=== PATIENT | male | born 1955 | race Caucasian/White ===

== ENCOUNTER → 2022-04-23 14:35 | Outpatient (CLI) | payer MEDICARE, OTHER, SELFPAY | PROVIDERS: PCP Internal Medicine; Referring Provider Family Medicine; Visit Provider Family Medicine | DX: L08.89 Other specified local infections of the skin and subcutaneous tissue (principal) | CPT/HCPCS: 11042; 87070; 87205; 99204; 99213 ==

== ENCOUNTER → 2022-05-01 11:27 | Outpatient (CLI) | payer MEDICARE, OTHER, SELFPAY | PROVIDERS: PCP Internal Medicine; Referring Provider Family Medicine; Visit Provider Family Medicine | DX: L08.89 Other specified local infections of the skin and subcutaneous tissue (principal); E11.628 Type 2 diabetes mellitus with other skin complications; E11.51 Type 2 diabetes mellitus with diabetic peripheral angiopathy without gangrene | CPT/HCPCS: 87070; 87075; 87205; 99213; 99214 ==

== ENCOUNTER → 2022-05-09 10:15 | Outpatient (CLI) | payer MEDICARE, OTHER, SELFPAY | PROVIDERS: PCP Internal Medicine; Referring Provider Internal Medicine; Visit Provider Family Medicine | DX: L08.89 Other specified local infections of the skin and subcutaneous tissue (principal); E11.628 Type 2 diabetes mellitus with other skin complications; E11.51 Type 2 diabetes mellitus with diabetic peripheral angiopathy without gangrene | CPT/HCPCS: 11042 ==

== ENCOUNTER → 2022-05-16 10:56 | Outpatient (CLI) | payer MEDICARE, OTHER, SELFPAY | PROVIDERS: PCP Internal Medicine; Referring Provider Family Medicine; Visit Provider Family Medicine | DX: S31.105D Unspecified open wound of abdominal wall, periumbilic region without penetration into peritoneal cavity, subsequent encounter (principal) | CPT/HCPCS: 99212 ==

== ENCOUNTER → 2022-05-21 13:55 | Outpatient (CLI) | payer MEDICARE, OTHER, SELFPAY ==
--- NOTE | 2022-05-21 | DI.RAD.S_ITS ---
PROCEDURE: XR FOOT RT MIN 3V INDICATIONS: puncture wound rt 2nd plantar Mth FB TECHNIQUE: 3 views of the foot were acquired. COMPARISON: None. FINDINGS: Bones: No fractures or dislocations. No suspicious bony lesions. Soft tissues: No tibiotalar joint effusion. Achilles tendon appears normal. IMPRESSION: No acute osseous abnormalities. No radiopaque foreign body. Dictated by: Marilee Duran M.D. on 05/21/2022 at 17:19 Approved by: Marilee Duran M.D. on 05/21/2022 at 17:20
== END ==
PROVIDERS: PCP Internal Medicine; Referring Provider Internal Medicine; Visit Provider Family Medicine
DX: E11.621 Type 2 diabetes mellitus with foot ulcer (principal); L97.512 Non-pressure chronic ulcer of other part of right foot with fat layer exposed; L08.9 Local infection of the skin and subcutaneous tissue, unspecified; E11.42 Type 2 diabetes mellitus with diabetic polyneuropathy
CPT/HCPCS: 11042; 73630; 87070; 87075; 87077; 87147; 87185; 87186; 87205; 99212; 99214

== ENCOUNTER → 2022-05-28 10:58 | Outpatient (CLI) | payer MEDICARE, OTHER, SELFPAY | PROVIDERS: PCP Internal Medicine; Referring Provider Internal Medicine; Visit Provider Family Medicine | DX: E11.621 Type 2 diabetes mellitus with foot ulcer (principal); S91.134S Puncture wound without foreign body of right lesser toe(s) without damage to nail, sequela; L97.512 Non-pressure chronic ulcer of other part of right foot with fat layer exposed; E11.40 Type 2 diabetes mellitus with diabetic neuropathy, unspecified; B95.61 Methicillin susceptible Staphylococcus aureus infection as the cause of diseases classified elsewhere; B95.7 Other staphylococcus as the cause of diseases classified elsewhere; Z79.01 Long term (current) use of anticoagulants | CPT/HCPCS: 11042; 99213 ==

== ENCOUNTER → 2022-06-04 10:13 | Outpatient (CLI) | payer MEDICARE, OTHER, SELFPAY | PROVIDERS: PCP Internal Medicine; Referring Provider Internal Medicine; Visit Provider Family Medicine | DX: E11.621 Type 2 diabetes mellitus with foot ulcer (principal); L97.512 Non-pressure chronic ulcer of other part of right foot with fat layer exposed; E11.42 Type 2 diabetes mellitus with diabetic polyneuropathy; L08.9 Local infection of the skin and subcutaneous tissue, unspecified; Z79.01 Long term (current) use of anticoagulants | CPT/HCPCS: 11042; 87070; 87075; 87077; 87147; 87186; 87205; 99213 ==

== ENCOUNTER → 2022-06-12 10:55 | Outpatient (CLI) | payer MEDICARE, OTHER, SELFPAY | PROVIDERS: PCP Internal Medicine; Referring Provider Internal Medicine; Visit Provider Family Medicine | DX: E11.621 Type 2 diabetes mellitus with foot ulcer (principal); L97.512 Non-pressure chronic ulcer of other part of right foot with fat layer exposed; E11.51 Type 2 diabetes mellitus with diabetic peripheral angiopathy without gangrene; E11.42 Type 2 diabetes mellitus with diabetic polyneuropathy | CPT/HCPCS: 97597 ==

== ENCOUNTER → 2022-06-26 11:29 | Outpatient (CLI) | payer MEDICARE, OTHER, SELFPAY | PROVIDERS: PCP Internal Medicine; Referring Provider Internal Medicine; Visit Provider Surgery | DX: L84 Corns and callosities (principal); Z86.31 Personal history of diabetic foot ulcer; E11.40 Type 2 diabetes mellitus with diabetic neuropathy, unspecified; E11.51 Type 2 diabetes mellitus with diabetic peripheral angiopathy without gangrene | CPT/HCPCS: 11055; 99212 ==

== ENCOUNTER 2022-07-13 03:32 | Emergency (ER) | payer MEDICARE, OTHER, SELFPAY ==
[2022-07-13] VITALS (12 sets, daily range): BP systolic 111–152; BP diastolic 60–72; PULSE 80–100; RESP 16–18; TEMP 38.8; O2SAT 93–98; BMI 28.3
--- NOTE | 2022-07-13 03:43 | DI.RAD.S_ITS ---
PROCEDURE: XR CHEST 1V INDICATIONS: fever TECHNIQUE: One view of the chest was acquired. COMPARISON: [facility], CT, CT ABDOMEN PELVIS W CON, 07/13/2022, 5:24. FINDINGS: Surgical changes and devices: Sternotomy wires are seen. Lungs and pleura: Left-sided pleural thickening seen laterally, which is attributed to partially loculated pleural effusion. Patchy infiltrates can be seen at the left lung base. No pneumothorax is seen. Mediastinum: Mediastinal contours appear normal. Heart size is normal. Bones and chest wall: Age-appropriate bony degenerative changes are seen. No suspicious bony lesions. Overlying soft tissues appear unremarkable. IMPRESSION: Left-sided pleural effusion, which is seen laterally and is believed to be partially loculated. This can be seen in patients for several months following sternotomy. Please correlate with patient history. Postoperative and degenerative changes are seen. (Note: The original preliminary report does not mention the left-sided pleural effusion, yet is described on the follow-up CT.) Dictated by: Jono Naqvi M.D. on 07/13/2022 at 7:48 Approved by: Jono Naqvi M.D. on 07/13/2022 at 7:50
[2022-07-13 03:58] LABS: Alanine Aminotransferase 39 IU/L (<50); Albumin 3.6 g/dL (3.5-5.0); Albumin Globulin Ratio 1.2 (1.0-2.8); Alkaline Phosphatase 107 U/L (38-126); Aspartate Aminotransferase 58 IU/L (17-59); BUN Creatinine Ratio 12.5 (6-22); Bilirubin Total 0.6 mg/dL (0.2-1.3); Blood Urea Nitrogen 12 mg/dL (9-20); Calcium 7.3 mg/dL (8.4-10.2); Carbon Dioxide 26 mmol/L (22-32); Chloride 92 mmol/L (98-107); Creatine Kinase 90 U/L (55-170); Estimated Glomerular Filt Rate > 60 mL/min (>60); Globulin 3.1 g/dL (1.7-4.1); Glucose 218 mg/dL (80-110); HEMOLYSIS 23 (0-50); Hematocrit 31.1 % (41-53); Hemoglobin 10.5 g/dL (13.5-17.5); Mean Corpuscular HGB Conc 33.7 % (30-36); Mean Corpuscular Hemoglobin 27.3 PG (26-34); Mean Corpuscular Volume 80.8 fL (80-100); Platelet Count 195 X10^3/uL (150-400); Potassium 3.8 mmol/L (3.4-5.1); Red Blood Cell Count 3.85 X10^6/uL (4.5-5.9); Red Cell Distribution Width 16.6 % (11.6-14.8); Sodium 127 mmol/L (137-145); Total Protein 6.7 g/dL (6.3-8.2); White Blood Cell Count 3.2 X10^3/uL (4.5-11.0)
[2022-07-13 03:59] LABS: Add Manual Diff / Slide Review YES
[2022-07-13 04:02] LABS: Lactate (Lactic Acid) 1.6 mmol/L (0.7-2.1)
[2022-07-13 04:10] LABS: Troponin I 0.014 ng/mL (0.01-0.034)
[2022-07-13 04:15] LABS: Procalcitonin 0.47 ng/mL (<0.5)
[2022-07-13 04:33] LABS: Influenza A - CEPHEID Flu A NEGATIVE (NEGATIVE); Influenza B - CEPHEID Flu B NEGATIVE (NEGATIVE); Respiratory Syncytial Virus Negative (Negative)
[2022-07-13] MEDS: ACETAMINOPHEN 325 MG TABLET 975 MG PO (04:33)
[2022-07-13 04:39] LABS: COVID-19 CEPHEID 4-PLEX PCR Negative (Negative)
--- NOTE | 2022-07-13 04:54 | ED.SEPSIS ---
HPI - Sepsis General Chief Complaint: Fever Mode of arrival: EMS Source: patient Evaluation Sepsis Screen: No Definite Risk Sepsis Infection Criteria Present: None Narrative: Patient is a 67-year-old male history of insulin-dependent diabetes, hypertension hyperlipidemia, mesenteric ischemia presenting today with confusion and fever. Daughter states that she has and his noted that he is was having some hallucinations talking about things that definitely did not happen. He noted to have a fever 101.8. He has had chronic wounds on his right foot but they actually have healed he was seeing wound care. His but they have now healed. He has had chronic abdominal pain he had a stent placed is for his legs, he is on anticoagulation. He denies any neck pain no severe headache chest pain palpitations no cough no significant nausea or vomiting. No sore throat. Denies any painful or frequent urination. Review of Systems Review of Systems Narrative: GENERAL:+ fever,+ confusion HEENT: Denies sinus pain, ear pain, sore throat, difficulty swallowing, neck pain RESPIRATORY: Denies dyspnea, cough, wheezing, hemoptysis, sputum. CARDIOVASCULAR: Denies chest pain, palpitations, orthopnea, edema GASTROINTESTINAL: Denies nausea, vomiting, abdominal pain, diarrhea, constipation, melena. : Denies dysuria, frequency, incontinence, hematuria, urinary retention, flank pain. MUSCULOSKELETAL: Denies weakness, joint pain, or bony pain SKIN: No rash, no erythema, no pruritus NEUROLOGIC: Denies weakness, dizziness, headache, numbness, change in speech, confusion PSYCHIATRIC: No concerning psychosocial issues. 12 point review of systems is negative except for those stated above and HPI Exam Initial Vital Signs Initial Vital Signs: Vital Signs Temperature 101.8 F H 07/13/22 03:40 Pulse Rate 100 H 07/13/22 03:40 Respiratory Rate 18 07/13/22 03:40 Blood Pressure 134/62 07/13/22 03:40 Pulse Oximetry 96 07/13/22 03:40 Oxygen Delivery Method 07/13/22 03:40 GENERAL: Awake alert 67-year-old male HEENT: Head atraumatic,EOMI, pupils reactive, face symmetric, moist mucous membranes CARDIOVASCULAR: Regular rate and rhythm without murmurs, rubs or gallops. RESPIRATORY: Breath sounds equal bilaterally, no wheezes rales or rhonchi. ABDOMEN: Soft, tender right upper quadrant positive Higuera sign his mild epigastric tenderness EXTREMITIES: Normal range of motion, no clubbing or edema. Neurovascularly intact NEUROLOGICAL: Alert and oriented x4.Normal gait and speech. Landscape Manager strength equal bilaterally moving all extremities SKIN: Warm, dry, no laceration, no petechiae, no rashes or lesions. A sore on right foot are completely healed there is no erythema or drainage Course Orders Ordered: Discontinued Medications Acetaminophen (Acetaminophen 325 Mg Tablet) 975 mg PO NOW ONE Stop: 07/13/22 03:46 Last Admin: 07/13/22 04:33 Dose: 975 mg Documented By: ANTONIO Sodium Chloride (Normal Saline 0.9%) 1,000 mls @ 200 mls/hr IV CONT PETE Last Infusion: 07/13/22 08:06 Dose: 200 mls/hr Documented By: Admin: 07/13/22 06:43 Dose: 200 mls/hr Documented By: BRENT Piperacillin Sod/Tazobactam (Sod 4.5 gm/ Sodium Chloride) 100 mls @ 200 mls/hr IV NOW ONE Stop: 07/13/22 06:41 Last Infusion: 07/13/22 08:07 Dose: 0 mls/hr Documented By: Admin: 07/13/22 06:45 Dose: 200 mls/hr Documented By: BRENT Morphine Sulfate (Morphine 2 Mg/Ml Inj) 2 mg IV NOW ONE Stop: 07/13/22 06:34 Vital Signs Vital signs: Vital Signs - 8 hr 07/13/22 03:40 07/13/22 04:33 07/13/22 03:50 Temperature 101.8 F H 101.8 F H Pulse Rate 100 H 98 H Respiratory Rate 18 Blood Pressure 134/62 Pulse Oximetry 96 98 Oxygen Delivery Method Room Air 07/13/22 04:00 07/13/22 04:00 07/13/22 04:30 Temperature Pulse Rate 93 H Respiratory Rate Blood Pressure 132/72 137/60 Pulse Oximetry 96 Oxygen Delivery Method 07/13/22 04:30 07/13/22 05:00 07/13/22 05:00 Temperature Pulse Rate 93 H 97 H Respiratory Rate Blood Pressure 111/62 Pulse Oximetry 95 93 Oxygen Delivery Method 07/13/22 04:30 07/13/22 05:35 07/13/22 04:00 Temperature Pulse Rate 93 H 87 93 H Respiratory Rate 18 16 18 Blood Pressure 137/60 132/72 Pulse Oximetry 95 95 96 Oxygen Delivery Method Sepsis Evaluation (ED) Triage Screening Sepsis Screen: No Definite Risk Level 1 - Infection Sepsis Infection Criteria Present: None Response It is my opinion that his patient have a likely infectious etiology for meeting sepsis criteria: Does Not Fluid calculation based on 30 mL/kg within 1hr of criteria: IBW used due to BMI>30 Antibiotics initiated within 1 hr of Sepis dx: No Tissue Perfusion Reassessed within 6 hrs of infusion start time: No MDM - Sepsis Lab Data Result diagrams: 07/13/22 03:38 07/13/22 03:38 Labs: Lab Results 07/13/22 07/13/22 07/13/22 Range/Units 03:38 03:38 03:38 WBC 3.2 L (4.5-11.0) X10^3/uL RBC 3.85 L (4.5-5.9) X10^6/uL Hgb 10.5 L (13.5-17.5) g/dL Hct 31.1 L (41-53) % MCV 80.8 (80-100) fL MCH 27.3 (26-34) PG MCHC 33.7 (30-36) % RDW 16.6 H (11.6-14.8) % Plt Count 195 (150-400) X10^3/uL Neut % (Auto) Not Reportable Lymph % (Auto) Not Reportable Rains % (Auto) Not Reportable Eos % (Auto) Not Reportable Baso % (Auto) Not Reportable Lymph # (Auto) Not Reportable Rains # (Auto) Not Reportable Baso # (Auto) Not Reportable Total Counted 100 Seg Neutrophils % 76.0 H (38-70) % Band Neutrophils % 9.0 H (3-7) % Lymphocytes % (Manual) 9.0 L (25-45) % Monocytes % (Manual) 5.0 (2-11) % Basophils % (Manual) 1.0 (0-1) % Neutrophils # (Manual) 2720 L (2900-2206) /uL RBC Morphology See below Anisocytosis 1+ H Sodium 127 L (137-145) mmol/L Potassium 3.8 (3.4-5.1) mmol/L Chloride 92 L (98-107) mmol/L Carbon Dioxide 26 (22-32) mmol/L BUN 12 (9-20) mg/dL Creatinine 0.96 (0.66-1.25) mg/dL Estimated GFR > 60 (>60) mL/min BUN/Creatinine Ratio 12.5 (6-22) Glucose 218 H (80-110) mg/dL Lactate 1.6 (0.7-2.1) mmol/L Calcium 7.3 L (8.4-10.2) mg/dL Total Bilirubin 0.6 (0.2-1.3) mg/dL AST 58 (17-59) IU/L ALT 39 (<50) IU/L Alkaline Phosphatase 107 (38-126) U/L Total Creatine Kinase 90 (55-170) U/L CK-MB (CK-2) TNP CK-MB (CK-2) Rel Index TNP Troponin I 0.014 (0.01-0.034) ng/mL Total Protein 6.7 (6.3-8.2) g/dL Albumin 3.6 (3.5-5.0) g/dL Globulin 3.1 (1.7-4.1) g/dL Albumin/Globulin Ratio 1.2 (1.0-2.8) Procalcitonin 0.47 (<0.5) ng/mL Urine Color Urine Appearance Urine pH (4.5-8.0) Ur Specific [place] (1.000-1.035) Urine Protein (Negative) Urine Glucose (UA) (Negative) g/dL Urine Ketones (NEGATIVE) Urine Occult Blood (Negative) Urine Nitrate (Negative) Urine Bilirubin (NEGATIVE) Urine Urobilinogen (0.2) E.U./dL Ur Leukocyte Esterase (NEGATIVE) Urine RBC (0-5/HPF) Urine WBC (0-5/HPF) Urine Bacteria (None) Urine Mucus (Negative) Micro UA Comment Chlamy pneumoniae PCR (Not Detect) Adenovirus (PCR) (Not Detect) B. pertussis DNA (PCR) (Not Detecte) B.parapertussis DNA PCR (Not Detecte) Coronavirus OC43 (PCR) (Not Detect) Coronavirus HKU1 (PCR) (Not Detect) Coronavirus 229E (PCR) (Not Detect) SARS-CoV-2 (PCR) (Negative) Coronavirus NL63 (PCR) (Not Detect) Human Metapneumovir PCR (Not Detect) Influenza A (RT-PCR) (NEGATIVE) Influenza Type A (PCR) (Not Detect) Influenza B (RT-PCR) (NEGATIVE) Influenza Type B (PCR) (Not Detect) M. pneumoniae (PCR) (Not Detect) Parainfluenza 1 (PCR) (Not Detect) Parainfluenza 2 (PCR) (Not Detect) Parainfluenza 3 (PCR) (Not Detect) Parainfluenza 4 (PCR) (Not Detect) RSV (PCR) (Negative) Entero/Rhino (PCR) (Not Detect) 07/13/22 07/13/22 07/13/22 Range/Units 03:38 03:38 05:07 WBC (4.5-11.0) X10^3/uL RBC (4.5-5.9) X10^6/uL Hgb (13.5-17.5) g/dL Hct (41-53) % MCV (80-100) fL MCH (26-34) PG MCHC (30-36) % RDW (11.6-14.8) % Plt Count (150-400) X10^3/uL Neut % (Auto) Lymph % (Auto) Rains % (Auto) Eos % (Auto) Baso % (Auto) Lymph # (Auto) Rains # (Auto) Baso # (Auto) Total Counted Seg Neutrophils % (38-70) % Band Neutrophils % (3-7) % Lymphocytes % (Manual) (25-45) % Monocytes % (Manual) (2-11) % Basophils % (Manual) (0-1) % Neutrophils # (Manual) (5525-3484) /uL RBC Morphology Anisocytosis Sodium (137-145) mmol/L Potassium (3.4-5.1) mmol/L Chloride (98-107) mmol/L Carbon Dioxide (22-32) mmol/L BUN (9-20) mg/dL Creatinine (0.66-1.25) mg/dL Estimated GFR (>60) mL/min BUN/Creatinine Ratio (6-22) Glucose (80-110) mg/dL Lactate (0.7-2.1) mmol/L Calcium (8.4-10.2) mg/dL Total Bilirubin (0.2-1.3) mg/dL AST (17-59) IU/L ALT (<50) IU/L Alkaline Phosphatase (38-126) U/L Total Creatine Kinase (55-170) U/L CK-MB (CK-2) CK-MB (CK-2) Rel Index Troponin I (0.01-0.034) ng/mL Total Protein (6.3-8.2) g/dL Albumin (3.5-5.0) g/dL Globulin (1.7-4.1) g/dL Albumin/Globulin Ratio (1.0-2.8) Procalcitonin (<0.5) ng/mL Urine Color Yellow Urine Appearance Clear Urine pH 5.0 (4.5-8.0) Ur Specific [place] 1.010 (1.000-1.035) Urine Protein Trace H (Negative) Urine Glucose (UA) 1+ H (Negative) g/dL Urine Ketones Negative (NEGATIVE) Urine Occult Blood 3+ H (Negative) Urine Nitrate Negative (Negative) Urine Bilirubin Negative (NEGATIVE) Urine Urobilinogen 0.2 (0.2) E.U./dL Ur Leukocyte Esterase Negative (NEGATIVE) Urine RBC 1-5/hpf (0-5/HPF) Urine WBC 0-1/hpf (0-5/HPF) Urine Bacteria None seen (None) Urine Mucus 1+ H (Negative) Micro UA Comment * Chlamy pneumoniae PCR Not detected (Not Detect) Adenovirus (PCR) Not detected (Not Detect) B. pertussis DNA (PCR) Not detected (Not Detecte) B.parapertussis DNA PCR Not detected (Not Detecte) Coronavirus OC43 (PCR) Not detected (Not Detect) Coronavirus HKU1 (PCR) Not detected (Not Detect) Coronavirus 229E (PCR) Not detected (Not Detect) SARS-CoV-2 (PCR) Negative Not detected (Negative) Coronavirus NL63 (PCR) Not detected (Not Detect) Human Metapneumovir PCR Not detected (Not Detect) Influenza A (RT-PCR) Flu a negative (NEGATIVE) Influenza Type A (PCR) Not detected (Not Detect) Influenza B (RT-PCR) Flu b negative (NEGATIVE) Influenza Type B (PCR) Not detected (Not Detect) M. pneumoniae (PCR) Not detected (Not Detect) Parainfluenza 1 (PCR) Not detected (Not Detect) Parainfluenza 2 (PCR) Not detected (Not Detect) Parainfluenza 3 (PCR) Not detected (Not Detect) Parainfluenza 4 (PCR) Not detected (Not Detect) RSV (PCR) Negative Detected H (Negative) Entero/Rhino (PCR) Not detected (Not Detect) Urine Dip Bedside Urine Glucose 100 mg/dl Bedside Urine Bilirubin - Negative Bedside Urine Ketone - Negative Urine Specific [place] 1.015 Bedside Urine Occult Blood +++ Bedside Urine pH 6 Bedside Urine Protein +/- 15 Bedside Urine Urobilinogen - Negative Bedside Urine Nitrite - Negative Bedside Urine Leukocytes - Negative Esterase Imaging Data Chest x-ray: Radiologist's Impression: Preliminary report no acute cardiopulmonary abnormality is identified CT scan - abdomen/pelvis: Radiologist's Impression: Preliminary report questionable gallbladder wall thickening if there is clinical concern for acute cholecystitis recommend right upper quadrant ultrasound. No evidence of Colace diverticulitis bowel obstruction obstructive uropathy or acute appendicitis. Small bilateral pleural effusions left greater than right. ECG Data Interpretation: Normal sinus rhythm rate 93 [place] interval 154 QRS [address] changes no T-wave inversions Q-waves noted in lead 3 only no priors incomplete right bundle branch block left MDM Narrative Medical decision making narrative: Patient has a fever no obvious source he does not have pneumonia is 4 pack viral panel is negative. He is having some right upper quadrant pain but normal bilirubin and liver enzymes normal lipase. CT does show possible thickened gallbladder. Ultrasound was ordered. And is negative. Bilirubin liver enzymes and lipase are all negative. Patient has full respiratory panel is out positive for RSV. This would explain fever and confusion. At this time no need for antibiotics. He is not hypoxic he is tolerating fluids. This time does not need any sort of admission criteria Discharge Plan Departure Patient Disposition: Home Clinical Impression: RSV bronchitis Instructions: DI for Respiratory Syncytial Virus -- Adults Activity Restrictions/Additional Instructions: *You have been diagnosed with RSV *What to do: Increase fluids as tolerated call my treat fever as needed. No need this time. *Continue to take medications as directed Tylenol 650 mg every 4-6 hours if needed for fever or pain *Follow up with your primary care provider in 2-3 days or call [phone] *Return to ER if you should have increased difficulty breathing worsening hallucinations decreased fluid intake or any new, worsening or concerning symptoms Prescriptions: No Action GlyBURIDE (Diabeta / Micronase) 5 mg PO Q DAY Qty: 0 Metformin Hydrochloride (Glucophage) 1,000 mg PO BID Qty: 0 Metoprolol Tartrate (Lopressor) 25 mg PO Q DAY Qty: 0 INSULIN HUMAN NPH 10ML (HUMULIN N) 44 unit Q DAY Qty: 0 LISINOPRIL (Zestril / Prinivil) 10 mg Q DAY Qty: 0 OMEPRAZOLE 20 mg PO Qty: 0 Atorvastatin Calcium (Lipitor) 40 mg PO Q DAY Qty: 0 Referrals: Ivan Xie MD [Primary Care Provider] - Visit Report Forms: Patient Portal/API
[2022-07-13 05:13] LABS: Appearance Urine UA CLEAR; Bilirubin Urine UA NEGATIVE (NEGATIVE); Color Urine UA YELLOW; Glucose Urine UA 1+ g/dL (Negative); Ketones Urine UA NEGATIVE (NEGATIVE); Leukocyte Esterase Urine UA NEGATIVE (NEGATIVE); Nitrite Urine UA NEGATIVE (Negative); Occult Blood Urine UA 3+ (Negative); Protein Urine UA TRACE (Negative); Urobilinogen Urine UA 0.2 E.U./dL (0.2)
--- NOTE | 2022-07-13 05:19 | DI.CT.S_ITS ---
PROCEDURE: CT ABDOMEN PELVIS W CON INDICATIONS: ab pain and fever TECHNIQUE: After the administration of oral and IV contrast, axial sections were acquired from the lung bases to the pubic symphysis. Coronal and sagittal reformats were performed. For radiation dose reduction, the following was used: automated exposure control, adjustment of mA and/or kV according to patient size. COMPARISON: [facility], CR, XR CHEST 1V, 07/13/2022, 3:43. [facility], US, US ABDOMEN LIMITED, 07/13/2022, 7:03. FINDINGS: Image quality: Excellent. Lung bases: There is a small left-sided pleural effusion seen, with atelectasis. There is a trace right-sided pleural effusion. A small hiatal hernia is incidentally noted. Heart: No significant findings. ABDOMEN: Liver: Unremarkable. Gallbladder: The gallbladder is contracted and demonstrates potential wall thickening. Biliary ducts: Unremarkable. Pancreas: Unremarkable. Spleen: The spleen is enlarged, measuring 15.8 cm AP. Adrenal Glands: Unremarkable. Kidneys and Ureters: Unremarkable. Stomach and Bowel: Stomach, small bowel loops, and colon are unremarkable. Peritoneum: No abnormal intraperitoneal fluid. No free air. Ventral Wall: No hernia. Abdominal Nodes: No retroperitoneal or mesenteric adenopathy by size criteria. Vessels: Aorta and inferior vena cava are normal in size. Atherosclerotic calcification is noted. And SMA stent is seen, which is demonstrated to be patent. PELVIS: Pelvic Organs: Unremarkable. Bladder: Unremarkable. Pelvic Nodes: No enlarged lymph nodes. Miscellaneous: Inguinal hernias are seen. Bones: Lower lumbar spine degenerative changes are seen. Milder degenerative changes are seen elsewhere. IMPRESSION: Contracted gallbladder, with potential gallbladder wall thickening. (The follow-up ultrasound demonstrates no significant gallbladder abnormality.) There is a small left-sided pleural effusion and a trace right-sided pleural effusion. Additional findings: Small hiatal hernia Splenomegaly Patent SMA stent Lower lumbar spine degenerative change Bilateral fat containing inguinal hernias Note: No significant discrepancy from the preliminary report. Dictated by: Jono Naqvi M.D. on 07/13/2022 at 7:12 Approved by: Jono Naqvi M.D. on 07/13/2022 at 7:16
[2022-07-13 05:29] LABS: Bacteria Urine None Seen; RBC Urine 1-5/HPF (0-5/HPF); WBC Urine 0-1/HPF (0-5/HPF)
[2022-07-13 05:30] LABS: Mucus Urine 1+ (Negative)
--- NOTE | 2022-07-13 06:28 | DI.US.S_ITS ---
PROCEDURE: US ABDOMEN LIMITED INDICATIONS: ruq fever TECHNIQUE: Real-time focused scanning was performed of the abdomen, with image documentation. COMPARISON: [facility], CR, XR CHEST 1V, 07/13/2022, 3:43. [facility], CT, CT ABDOMEN PELVIS W CON, 07/13/2022, 5:24. FINDINGS: The liver is normal in size and demonstrates no focal lesions. No findings of gallstones or sludge are seen. The gallbladder wall is not thickened, measuring 3 mm or less. No specific pericholecystic fluid is seen. The sonographic Higuera sign is negative. There is no biliary dilatation, the common bile duct measures 6 mm. The pancreas is not well seen secondary overlying bowel gas. IMPRESSION: The gallbladder demonstrates a normal sonographic appearance. No biliary dilatation is seen. Dictated by: Jono Naqvi M.D. on 07/13/2022 at 7:09 Approved by: Jono Naqvi M.D. on 07/13/2022 at 7:11
[2022-07-13] MEDS: SODIUM CHLORIDE 0.9% 1,000 ML 200 ML IV (06:43)
[2022-07-13] MEDS: PIPERACILLIN/TAZO 4.5 GM in SODIUM CHLORIDE 0.9% 100 ML IV (06:45)
[2022-07-13 06:55] LABS: Neutrophils Absolute Manual 2720 /uL (3000-5900); Total Cells Counted 100
[2022-07-13 06:56] LABS: Anisocytosis 1+
[2022-07-13 07:13] LABS: Adenovirus Not Detected (Not Detect); B. parapertussis Not Detected (Not Detecte); Bordetella pertussis Not Detected (Not Detecte); Chlamydophila pneumoniae Not Detected (Not Detect); Coronavirus 229E Not Detected (Not Detect); Coronavirus HKU1 Not Detected (Not Detect); Coronavirus NL 63 Not Detected (Not Detect); Coronavirus OC43 Not Detected (Not Detect); Human Metapneumovirus Not Detected (Not Detect); Human Rhinovirus/Enterovirus Not Detected (Not Detect); Influenza A Not Detected (Not Detect); Influenza B Not Detected (Not Detect); Mycoplasma pneumoniae Not Detected (Not Detect); Parainfluenza Virus 1 Not Detected (Not Detect); Parainfluenza Virus 2 Not Detected (Not Detect); Parainfluenza Virus 3 Not Detected (Not Detect); Parainfluenza Virus 4 Not Detected (Not Detect); Respiratory Syncytial Virus Detected (Not Detect); SARS- CoV-2 Not Detected (Not Detecte)
[2022-07-14 09:05] LABS: Acinetobacter baumannii Not Detected (Not Detect); Candida albicans Not Detected (Not Detect); Candida glabrata Not Detected (Not Detect); Candida krusei Not Detected (Not Detect); Candida parapsilosis Not Detected (Not Detect); Candida tropicalis Not Detected (Not Detect); E. coli Not Detected (Not Detect); Enterobacter cloacae complex Not Detected (Not Detect); Enterobacteriaceae species Not Detected (Not Detect); Enterococcus species Not Detected (Not Detect); Haemophilus influenzae Not Detected (Not Detect); Listeria monocytogenes Not Detected (Not Detect); Methicillin-resistant gene Detected (Not Detect); Neisseria meningitidis Not Detected (Not Detect); Proteus species Not Detected (Not Detect); Pseudomonas aeruginosa Not Detected (Not Detect); Serratia marcescens Not Detected (Not Detect); Staphylococcus species Detected (Not Detect); Streptococcus agalactiae (Gr B Not Detected (Not Detect); Streptococcus pneumonia Not Detected (Not Detect); Streptococcus pyogenes (Gr A) Not Detected (Not Detect); Streptococcus species Not Detected (Not Detect)
== END 2022-07-13 08:08 | disposition home or self-care (01) ==
PROVIDERS: Emergency Provider Emergency Medicine; PCP Internal Medicine
DX: J20.5 Acute bronchitis due to respiratory syncytial virus (principal); Z79.01 Long term (current) use of anticoagulants; Z20.822 Contact with and (suspected) exposure to COVID-19
CPT/HCPCS: 0241U; 71045; 74177; 76705; 80053; 81001; 81003; 82550; 83605; 84145; 84484; 85007; 85025; 87040; 87077; 87086; 87150; 87633; 93005; 96365; 99284; J2270; J2543; Q9967